=== PATIENT | male | born 2005 | race Caucasian/White ===

== ENCOUNTER 2025-02-01 03:57 | Emergency (ER) | payer BC, SELFPAY ==
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
[2025-02-01 04:04] VITALS: PULSE 125; BMI 30.8
[2025-02-01 04:11] VITALS: BP 128/65; PULSE 125; RESP 20; O2SAT 95
--- NOTE | 2025-02-01 04:14 | PC.NURSE ---
- FAST ULTRA SOUND PER PROVIDER
[2025-02-01 04:55] LABS: Lactate (Lactic Acid) 2.5 mMol/L (0.4-2.0)
[2025-02-01 05:01] LABS: Basophils # (Auto) 0.0 Thou/mm3 (0.0-0.2); Basophils % (Auto) 1 % (0-2.5); Eosinophils # (Auto) 0.1 Thou/mm3 (0.0-0.5); Eosinophils % (Auto) 1 % (0-10); Hematocrit 44.5 % (41.0-53.0); Hemoglobin 15.6 g/dL (13.5-16.0); Immature Granulocytes Auto 0.05 Thou/mm3 (0.00-0.00); Lymphocytes # (Auto) 3.0 Thou/mm3 (1.0-5.0); Lymphocytes % (Auto) 36 % (10-50); Mean Corpuscular HGB Conc 35.1 g/dl (31.0-37.0); Mean Corpuscular Hemoglobin 31.7 pg (25.0-35.0); Mean Corpuscular Volume 90 fL (80-100); Monocytes # (Auto) 0.6 Thou/mm3 (0.0-0.8); Monocytes % (Auto) 7 % (0-12); Neutrophils # (Auto) 4.7 Thou/mm3 (1.8-7.7); Neutrophils % (Auto) 56 % (37-80); Nucleated Red Blood Cell # 0.00 Thou/mm3 (0.00-0.00); Nucleated Red Blood Cell % 0 /100 WBC (0); Platelet Count 359 Thou/mm3 (140-440); RDW Standard Deviation 38.7 fL (35.1-43.9); Red Blood Count 4.92 Miln/mm3 (4.50-5.90); White Blood Count 8.5 Thou/mm3 (4.5-11.0)
[2025-02-01] MEDS: SODIUM CHLORIDE 0.9% 1000 ML 1,000 ML 999 ML IV ×2 (05:04→05:56)
[2025-02-01] MEDS: SODIUM CHLORIDE 0.9% 1000 ML 1,000 ML 100 ML IV (05:04)
--- NOTE | 2025-02-01 05:06 | XR_ITS ---
Examination: AP chest single view Technique: AP portable upright chest single view Date and time: February 01, 2025, 0533 hrs., Comparison July 05, 2023 Indications: Shortness of breath today. Findings: Normal heart size. Lungs are clear. The osseous structures are intact. Impression: No active disease.
[2025-02-01 05:21] LABS: Alanine Aminotransferase 104 U/L (10-49); Albumin, Serum 5.0 gm/dL (3.5-5.0); Albumin/Globulin Ratio 2.3 (1.2-2.2); Alcohol, Blood Medical 297.8 mg/dL (0-10.0); Alkaline Phosphatase 66 U/L (46-116); Amylase 56 U/L (30-118); Anion Gap 14 (7-16); Aspartate Amino Transferase 42 U/L (0-34); BUN/Creatinine Ratio 7 Ratio (12-20); Bilirubin,Total 0.4 mg/dL (0.3-1.2); Blood Urea Nitrogen 7 mg/dL (9-23); Calcium 9.1 mg/dL (8.3-10.6); Calcium (Corrected) 9.1 mg/dL (8.5-10.1); Carbon Dioxide 21.6 mMol/L (20.0-31.0); Chloride 111 mMol/L (98-107); Creatinine (Component) 1.0 mg/dL (0.6-1.3); Estimated Creatinine Clearance 156.1 mL/min (>60); Globulin 2.2 gm/dL (2.3-3.5); Glucose 115 mg/dL (74-106); Osmolality,Calculated 291 (275-295); Potassium 4.0 mMol/L (3.4-5.1); Sodium 147 mMol/L (136-145); Total Protein 7.2 gm/dL (5.7-8.2); eGFR > 60 See Note
[2025-02-01 05:44] LABS: Collection Type, Urine Clean Catch; Squamous Epithelial Cell,Urine 0 /hpf (0-5)
[2025-02-01 05:48] LABS: Bilirubin,Urine Negative (Negative); Blood,Urine Negative (Negative); Clarity,Urine Clear (Clear/Hazy); Color,Urine Colorless (Lt Yel-Yel); Culture Indicated,Urine Not Indicated; Glucose, Urine Negative (Negative); Ketones,Urine Negative (Negative); Leukocyte Esterase,Urine Negative (Negative); Nitrite,Urine Negative (Negative); PH,Urine 6.0 (5.0-7.0); Protein,Urine Trace (Neg - Trace); RBC,Urine 1 /hpf (0-3); Specific Gravity,Urine 1.008 (1.001-1.035); Urobilinogen,Urine Negative mg/dL (0.0-1.0); WBC,Urine < 1 /hpf (0-5)
[2025-02-01 05:57] LABS: Amphetamine/Methamp Scrn,U Negative (Negative); Barbiturate Screen,Urine Negative (Negative); Benzodiazepines Screen,Urine Negative (Negative); Benzoylecgonine Screen, Ur Negative (Negative); Fentanyl Screen,Urine Negative (Negative); Opiate Screen,Urine Negative (Negative); THC Screen,Urine Positive (Negative)
[2025-02-01 06:25] VITALS: BP 120/83; PULSE 115; RESP 16; TEMP 36.8; O2SAT 97
[2025-02-01 07:45] LABS: Reflex Lactate? Y
== END 2025-02-01 06:27 ==
PROVIDERS: Emergency Provider Emergency Medicine
DX: Z02.89 Encounter for other administrative examinations (principal); Z04.1 Encounter for examination and observation following transport accident; E86.0 Dehydration; F10.129 Alcohol abuse with intoxication, unspecified; R06.02 Shortness of breath; Y90.8 Blood alcohol level of 240 mg/100 ml or more
CPT/HCPCS: 36415; 71045; 80053; 80307; 80320; 81001; 82150; 83605; 85025; 99284; J7030; G0480